=== PATIENT | male | born 1990 | race Caucasian/White ===

== ENCOUNTER → 2018-10-10 16:25 | Outpatient (CLI) | payer OTHER, SELFPAY ==
--- NOTE | 2018-10-10 16:30 | DI.RAD.S_ITS ---
PROCEDURE: XR WRIST RT MIN 3V INDICATIONS: wrist pain TECHNIQUE: 3 views of the wrist were acquired. COMPARISON: None. FINDINGS: Bones: No fractures or dislocations. No suspicious bony lesions. Soft tissues: No suspicious soft tissue calcifications. IMPRESSION: Intact right wrist. Dictated by: Hoda Urias M.D. on 10/10/2018 at 18:49 Approved by: Hoda Urias M.D. on 10/10/2018 at 18:50
== END ==
PROVIDERS: Visit Provider Hospitalist
DX: M25.531 Pain in right wrist (principal)
CPT/HCPCS: 73110